=== PATIENT | female | born 1950 | race Caucasian/White ===

== ENCOUNTER 2022-10-05 18:56 | Emergency (ER) | payer MEDICARE, SELFPAY ==
[2022-10-05 19:14] VITALS: BP 78/46; BMI 29.2
--- NOTE | 2022-10-05 19:33 | ED_ITS ---
HPI - Syncope General: Chief Complaint: Syncope Stated Complaint: SYNCOPAL EPISODE Time Seen by Provider: 10/05/22 19:04 History of Present Illness: Patient is a 72-year-old female comes to the ED with syncopal episode. Patient has a pacemaker. She states that she has had these syncopal episodes throughout her life. Patient also states that approximately 2 months ago she had a collapsed lower left lung that fluid was drained off of lung. Today she was driving and had been on a road for about 3 hours or so. She stopped to get some gas and when she got out of her vehicle she started feeling very lightheaded and weak. She went into the gas station to find a chair to sit down on and there was no chair available. She states that she then laid herself over one of the ice cream coolers. She was feeling even more weak and lightheaded so she slid herself down to the floor because she did not want to fall and hit her head. She denies any loss of consciousness, headache or head trauma. One of the workers at the gas station and then called 911 and EMS came and transferred patient here to the ED. She denies any fevers, chest pain, shortness of breath, palpitations, nausea/vomiting, bladder or bowel symptoms. Endorses not drinking a lot of fluids over the past couple days and feels dehydrated. Here in the ED she states she is feeling quite a bit better but still feels a little weak. patient lives in [place] and was just driving through [place]. Associated symptoms: Reports lightheadedness; Deny abdominal pain, chest pain, fever(s), headache(s) or nausea Review of Systems Const: Denies: fever(s), chills or fatigue Eyes: Denies: change in vision or eye discomfort ENMT: Denies: throat pain, odynophagia, nasal discharge or nasal congestion Card: Reports: lightheadedness and pre-syncope; Denies: chest pain, palpitations, edema, swelling of feet/ankles, dyspnea on exertion or orthopnea Resp: Denies: dyspnea, productive cough or non-productive cough GI: Denies: abdominal pain, nausea, vomiting, diarrhea, constipation or hematochezia : Denies: flank pain, dysuria or hematuria Musc: Denies: neck pain, back pain or extremity swelling Skin/Breast: Denies: rash or new lesions Neuro: Denies: headache(s), numbness in extremities or weakness in extremities PFSH ED PFSH: Medical History (Updated 10/06/22 @ 00:52 by OMAR Peng) No pertinent family history Pacemaker Pleural effusion Physical Exam Const: COMMON NORMALS: patient oriented x3 and alert GENERAL APPEARANCE: cooperative and comfortable HENMT: COMMON NORMALS: normocephalic HEAD & SCALP: normocephalic MOUTH: Normal oral and palatal mucosa present and moist mucous membranes abnormal Details: parched THROAT: posterior oropharynx normal and uvula midline Neck/C-Spine: COMMON NORMALS: supple GENERAL: Yes normal visual inspection Resp: COMMON NORMALS: normal respiratory effort, No retractions and No use of accessory muscles AUSCULTATION: diminished lung sounds on the left in the lower lung silva Cardio: COMMON NORMALS: regular rate, regular rhythm, S1 normal heart sound present, S2 normal heart sound present, No gallops present (Cardio), No clicks present (Cardio), No murmurs present (Cardio) and Peripheral pulses 2+ throughout RATE: regular rate RHYTHM: regular rhythm HEART SOUNDS: S1 normal heart sound present and S2 normal heart sound present PERIPHERAL PULSES: Peripheral pulses 2+ throughout GI: COMMON NORMALS: Normal to inspection, nondistended, normoactive bowel sounds present, Soft to palpation, non-tender and no masses PALPATION: Yes Soft to palpation : COMMON NORMALS: Yes no CVA tenderness BLADDER/KIDNEY EXAM: Yes no CVA tenderness Back/Pelvis: COMMON NORMALS: no CVA tenderness Extremity: COMMON NORMALS: normal to inspection Neuro: COMMON NORMALS: patient oriented x3, CN's II-XII intact bilaterally and moves all extremities SENSORIUM/ORIENTATION: Yes alert SPEECH: speech normal Skin: GENERAL SKIN EXAM: dry skin Course ED course: Nurse performed pacemaker interrogation and report came back showing no acute problems or concerns for today. Vital Signs: Vital signs: Vital Signs Pulse Rate 69 10/05/22 22:55 Respiratory Rate 18 10/05/22 22:55 Blood Pressure 92/54 10/05/22 22:55 Pulse Oximetry 90 10/05/22 22:55 Oxygen Delivery Me thod 10/05/22 20:25 Oxygen Flow Rate 2 10/05/22 20:25 MDM - Syncope Medical Decision Making Patient is a 72-year-old female comes to the ED with presyncopal episode. Patient states she has a history of similar syncopal type episodes and states that back in August of this year she had a past pleural effusion and had fluid drained off her left lower lung. Patient's blood pressure on arrival was low and was 78/46. Rest of her vitals were stable. She appears nontoxic and in no acute distress or pain. She has diminished lung sounds at the base of the left lower lung. She also has some dry oral mucous membranes. Rest of exam is benign. Chest x-ray shows moderate left pleural effusion. Troponins negative. EKG shows normal sinus rhythm with occasional PVC and no ST segment elevation or depression seen. Pacemaker was interrogated and report came back that there wer e no acute findings. Hemoglobin 9.9 over the rest of CBC and CMP are unremarkable. I offered admission to patient but she would prefer to go to [facility] to see her doctors there in the morning. She denies any current chest pain, shortness of breath, hemoptysis, fevers. Her nausea has improved along with her lightheadedness. Nurse got patient up and moved her around and gait was normal and steady she had no problems with ambulation. She did not require any oxygen via nasal cannula at the time of discharge. Patient appears stable for discharge home and told to follow-up with her PCP as soon as possible when she gets back in town to [place]. She was diagnosed with presyncope, dehydration, anemia and pleural effusion on the left lung. I discussed patient case with Dr. Benitez and he agreed with plan. Lab Data I reviewed the patient's lab results. 10/05/22 19:45 10/05/22 19:45 Radiology Impressions Chest X-Ray 10/05/22 21:25 IMPRESSION: 1. Moderate left pleural effusion with compressive atelectasis in the left lingula and left lower lobe. 2. Incidental/nonacute findings are listed in the report. Laboratory Results WBC 11.4 10^3/uL (4.0-10.0) H 10/05/22 19:45 RBC 3.70 10^6/uL (4.1-5.3) L 10/05/22 19:45 Hgb 9.9 g/dL (11.5-15.3) L 10/05/22 19:45 Hct 33.2 % (37.0-47.0) L 10/05/22 19:45 MCV 89.7 fl (81-99) 10/05/22 19:45 MCH 26.8 pg (28.0-34.0) L 10/05/22 19:45 MCHC 29.8 g/dL (30.0-36.0) L 10/05/22 19:45 RDW 15.3 % (12.1-15.1) H 10/05/22 19:45 Plt Count 253 10^3/cmm (130-400) 10/05/22 19:45 MPV 9.7 fL (7.4-10.4) 10/05/22 19:45 Neut % (Auto) 77.0 % 10/05/22 19:45 Lymph % (Auto) 15.6 % 10/05/22 19:45 [place] % (Auto) 5.4 % 10/05/22 19:45 Eos % (Auto) 1.2 % 10/05/22 19:45 Baso % (Auto) 0.4 % 10/05/22 19:45 Neut # (Auto) 8.79 10^3/uL (1.8-7.7) H 10/05/22 19:45 Lymph # (Auto) 1.8 10^3/uL (0.8-4.8) 10/05/22 19:45 [place] # (Auto) 0.6 10^3/uL (0.2-0.9) 10/05/22 19:45 Eos # (Auto) 0.1 10^3/uL (0.0-0.8) 10/05/22 19:45 Baso # (Auto) 0.0 10^3/uL (0.0-0.1) 10/05/22 19:45 Nucleated RBC % (auto) 0 % 10/05/22 19:45 Nucleated RBCs # 0.0 /100WBC 10/05/22 19:45 Sodium 143 mmol/L (136-145) 10/05/22 19:45 Potassium 3.9 mmol/L (3.5-5.1) 10/05/22 19:45 Chloride 107 mmol/L (98-107) 10/05/22 19:45 Carbon Dioxide 27 mmol/L (22-29) 10/05/22 19:45 Anion Gap 12.9 (5-19) 10/05/22 19:45 BUN 9 mg/dL (8-23) 10/05/22 19:45 Creatinine 1.0 mg/dL (0.5-0.9) H 10/05/22 19:45 GFR Calculation Not Reportable 10/05/22 19:45 Glucose 183 mg/dL (65-115) H 10/05/22 19:45 Calculated Osmolality 299 mOsm/kg (285-295) H 10/05/22 19:45 Calcium 8.9 mg/dL (8.5-10.5) 10/05/22 19:45 Total Bilirubin 0.2 mg/dL (0.15-1.2) 10/05/22 19:45 AST 19 U/L (0-32) 10/05/22 19:45 ALT 13 U/L (0-33) 10/05/22 19:45 Alkaline Phosphatase 91 U/L (35-105) 10/05/22 19:45 Troponin T Baseline 20 ng/L (0-10) H 10/05/22 19:45 Troponin T 120 Minute 13.51 ng/L (0-10) H 10/05/22 21:12 Delta Troponin T -6.49 ABS# (0-10) L 10/05/22 21:12 Total Protein 5.9 g/dL (6.6-8.7) L 10/05/22 19:45 Albumin 3.2 g/dL (3.5-5.2) L 10/05/22 19:45 Globulin 2.7 g/dL (1.3-4.6) 10/05/22 19:45 EKG Data EKG 1: EKG interpretation date: 10/05/22 Interpretation: Normal sinus rhythm with occasional PVC. 83 bpm, no ST segment elevation or depression seen. Discharge Plan Discharge Patient Disposition: Home Clinical Impression: Pre-syncope, Dehydration, Pleural effusion on left Anemia Qualifiers: Anemia type: unspecified type Qualified Code(s): D64.9 - Anemia, unspecified Condition: Stable Discharge Orders: Discharge ED (Routine); Ordered 10/05/22 Ordered By: Abdoulaye Lu Discharge Diet: Regular Discharge Activity: Increase activity as tolerated Activity Restrictions/Additional Instructions: Follow-up with your primary care doctor as soon as possible when you get back i [facility]. Continue taking all home medications as previously prescribed. Return to the ER or your medical provider if condition worsens. Please read and understand discharge instructions. Thank you for choosing [facility] for your healthcare needs today. Please realize this is an emergency room and that we are providing you with a medical screening exam and this may not be complete and all inclusive of all the testing and or work up that you may need to determine your ailment or severity of your illness. It is very important that you follow up as instructed or that you return to the Emergency Department should you have concerns or if your condition changes or worsens in any way. Coding Level of Care Code ED College Basketball Coach for Kandy Balderas
--- NOTE | 2022-10-05 19:42 | ECG_ITS ---
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 Measurements Intervals [place] Rate: 86 P: -28 OK: 187 QRS: 54 QRSD: 94 T: 44 QT: 395 QTc: 474 Interpretive Statements SINUS RHYTHM WITH FREQUENT VENTRICULAR PREMATURE COMPLEXES NONSPECIFIC T-WAVE ABNORMALITY ABNORMAL RHYTHM ECG No previous ECG available for comparison Electronically Signed On 10-05-2022 23:12:59 CDT by Christian Savage M.D. [email or web address] Investingour lady of mercy [id number]
[2022-10-05] MEDS: sodium chloride 0.9% 1,000 ML 999 ML IV ×2 (19:53→21:59)
[2022-10-05 19:57] LABS: Basophils % 0.4 %; Eosinophils # 0.1 10^3/uL (0.0-0.8); Eosinophils % 1.2 %; Hematocrit 33.2 % (37.0-47.0); Hemoglobin 9.9 g/dL (11.5-15.3); Lymphocytes # 1.8 10^3/uL (0.8-4.8); Lymphocytes % 15.6 %; Mean Corpuscular HGB Conc 29.8 g/dL (30.0-36.0); Mean Corpuscular Hemoglobin 26.8 pg (28.0-34.0); Mean Corpuscular Volume 89.7 fl (81-99); Mean Platelet Volume 9.7 fL (7.4-10.4); Monocytes # 0.6 10^3/uL (0.2-0.9); Monocytes % 5.4 %; Neutrophils # 8.79 10^3/uL (1.8-7.7); Nucleated Red Blood Cells % 0 %; Platelet Count 253 10^3/cmm (130-400); Red Cell Distribution Width 15.3 % (12.1-15.1); White Blood Count 11.4 10^3/uL (4.0-10.0)
[2022-10-05 20:19] LABS: Alanine Aminotransferase 13 U/L (0-33); Albumin Level 3.2 g/dL (3.5-5.2); Alkaline Phosphatase 91 U/L (35-105); Anion Gap 12.9 (5-19); Aspartate Amino Transferase 19 U/L (0-32); Blood Urea Nitrogen 9 mg/dL (8-23); Calcium 8.9 mg/dL (8.5-10.5); Carbon Dioxide 27 mmol/L (22-29); Chloride 107 mmol/L (98-107); Globulin 2.7 g/dL (1.3-4.6); Glucose 183 mg/dL (65-115); Osmolality Calculated 299 mOsm/kg (285-295); Potassium 3.9 mmol/L (3.5-5.1); Sodium 143 mmol/L (136-145); Total Bilirubin 0.2 mg/dL (0.15-1.2); Total Protein 5.9 g/dL (6.6-8.7)
[2022-10-05 20:25] VITALS: BP 89/53; PULSE 73; RESP 20; O2SAT 96
[2022-10-05 20:30] VITALS: BP 89/53; PULSE 72; RESP 24; O2SAT 100
[2022-10-05 20:37] LABS: Troponin(5th) Baseline 20 ng/L (0-10)
[2022-10-05 21:00] VITALS: BP 92/54; PULSE 69; RESP 19; O2SAT 89
[2022-10-05] MEDS: ondansetron 2 mg/ML SDV 2 mL 4 MG IVP (21:12)
--- NOTE | 2022-10-05 21:25 | XRR_ITS ---
PROCEDURE INFORMATION: Exam: XR Chest Exam date and time: 10/05/2022 9:53 PM Age: 72 years old Clinical indication: Shortness of breath; Prior surgery; Surgery type: Pacemaker; Patient HX: SOB. Hypotensive on monitor. ; Additional info: Near syncopal episode TECHNIQUE: Imaging protocol: Radiologic exam of the chest. Views: 1 view. COMPARISON: No relevant prior studies available. FINDINGS: Tubes, catheters and devices: There is a dual-lead cardiac pacer via left subclavian approach. Lungs: Compressive atelectasis in the left lingula and left lower lobe. Pleural spaces: Moderate left pleural effusion. Heart/Mediastinum: Cardiac silhouette is markedly enlarged. Mediastinal contours are unremarkable. Vasculature: Vascular calcifications in the aorta. Bones/joints: Bones are diffusely osteopenic. Degenerative changes in the spine and shoulders. Mild scoliosis in the visualized spine. XR/XR chest 1V portable [id number] IMPRESSION: 1. Moderate left pleural effusion with compressive atelectasis in the left lingula and left lower lobe. 2. Incidental/nonacute findings are listed in the report.
[2022-10-05 21:33] LABS: Troponin 5 2HR 13.51 ng/L (0-10)
[2022-10-05 21:36] LABS: Troponin 5 2HR Delta -6.49 ABS# (0-10)
--- NOTE | 2022-10-05 22:05 | ECG_ITS ---
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 Measurements Intervals [place] Rate: 83 P: 34 FL: 182 QRS: 49 QRSD: 93 T: 22 QT: 414 QTc: 487 Interpretive Statements SINUS RHYTHM WITH FREQUENT VENTRICULAR PREMATURE COMPLEXES NONSPECIFIC T-WAVE ABNORMALITY ABNORMAL RHYTHM ECG Compared to ECG 10/05/2022 19:42:23 No significant changes Electronically Signed On 10-05-2022 23:17:28 CDT by Christian Savage M.D. [id number]
[2022-10-05 22:55] VITALS: BP 92/54; PULSE 69; RESP 18; O2SAT 90
--- NOTE | 2022-10-08 13:26 | DCPLANNER ---
Addendum entered by Cora Downing 10/13/22 12:05: change control manager called patient due to no primary care physician - no answer at this time Original Note: change control manager called patient due to no primary care physician - no answer at this time
== END 2022-10-05 23:03 | disposition home or self-care (01) ==
PROVIDERS: Emergency Medicine; Emergency Provider Physician Assistant
DX: R55 Syncope and collapse (principal); E86.0 Dehydration; J90 Pleural effusion, not elsewhere classified; D64.9 Anemia, unspecified; Z95.0 Presence of cardiac pacemaker
CPT/HCPCS: 71045; 80053; 84484; 85025; 93005; 96361; 96374; 99285; J2405; J7030